=== PATIENT | female | born 1970 | race Asian ===

== ENCOUNTER 2017-08-04 12:31 | Emergency (ER) | payer SELFPAY ==
[~2017-08-04] VITALS: Ht 160 cm; Wt 60.0 kg
[2017-08-04 12:52] VITALS: BP 132/90
[2017-08-04] MEDS ORDERED: ACETAMINOPHEN 650MG/20.3ML UDC PO ONE (13:00)
== END 2017-08-04 14:07 | disposition left against medical advice (07) ==
LOC: ER 12:46
DX: S00.03XA Contusion of scalp, initial encounter (principal); S50.311A Abrasion of right elbow, initial encounter; Y04.8XXA Assault by other bodily force, initial encounter; Y93.89 Activity, other specified; Y92.69 Other specified industrial and construction area as the place of occurrence of the external cause; Y99.0 Civilian activity done for income or pay; I10 Essential (primary) hypertension
CPT/HCPCS: 81025; 99283